=== PATIENT | male | born 1955 | race Two or more races ===

== ENCOUNTER 2018-08-12 12:29 | Emergency (ER) | END 2018-08-12 14:38 | disposition home or self-care (01) ==

== ENCOUNTER 2019-01-25 18:57 | Emergency (ER) | payer SELFPAY ==
[~2019-01-25] VITALS: Ht 162.6 cm; Wt 73.5 kg
[~2019-01-25 18:57] MED LIST: CEPH-443 PO; MINE120C TOP
[2019-01-25 19:01] VITALS: BP 129/75; PULSE 74; RESP 18; Ht 162.6 cm; Wt 73.5 kg
[2019-01-25] MEDS ORDERED: KETOROLAC 30 MG INJ IM STA (21:55)
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
[2019-01-25] MEDS ORDERED: NAPR-985 PO (22:06)
== END 2019-01-25 22:25 | disposition home or self-care (01) ==
LOC: FTE 18:57
DX: M54.9 Dorsalgia, unspecified (principal); M25.511 Pain in right shoulder
CPT/HCPCS: 73030; 96372; 99284; J1885

== ENCOUNTER 2019-02-03 14:04 | Emergency (ER) | payer MEDICAID ==
[~2019-02-03] VITALS: Ht 167.6 cm; Wt 72.8 kg
[~2019-02-03 14:04] MED LIST changes: +NAPR-985 PO
[2019-02-03 14:09] VITALS: Ht 167.6 cm; Wt 72.8 kg
[2019-02-03] MEDS ORDERED: LORAZEPAM 2 MG INJ IM STA (19:04)
[2019-02-03] MEDS ORDERED: LORA-441 PO (20:47)
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
[2019-02-03 21:42] VITALS: BP 120/82; PULSE 67; RESP 18
== END 2019-02-03 21:44 | disposition home or self-care (01) ==
LOC: E/R 14:04
DX: F43.10 Post-traumatic stress disorder, unspecified (principal)
CPT/HCPCS: 36415; 80053; 80307; 81001; 85025; 96372; J2060; Z7502

== ENCOUNTER 2019-02-10 18:08 | Emergency (ER) | payer MEDICAID ==
[~2019-02-10] VITALS: Ht 165.1 cm; Wt 73.3 kg
[~2019-02-10 18:08] MED LIST changes: +LORA-441 PO
[2019-02-10 18:13] VITALS: Ht 165.1 cm; Wt 73.3 kg
[2019-02-10] MEDS ORDERED: LORAZEPAM 1 MG TAB PO ONE (19:00)
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
--- NOTE | 2019-02-11 10:08 | EN ---
Date/Time of Note Date/Time of Note DATE: 02/11/19 TIME: 10:07 ER Progress Note Sign Out Note: Dr. Ramos relayed current data and ongoing care with me. Time: Time of this note Primary Provider: Fernando Diagnosis: Pending: Psych assessment. Patient was evaluated by psychiatry, who recommended involuntary admission. On reevaluation the patient states that he just felt anxious, and at this point does not want to be admitted to psychiatric facility, he is medically cleared and stable for discharge, resources were provided, at discharge the patient was in no distress. ZOHAIB WARE MD Feb 11, 2019 10:08
[2019-02-11 12:07] VITALS: BP 117/71; PULSE 76; RESP 18
== END 2019-02-11 12:08 | disposition home or self-care (01) ==
LOC: E/R 18:08
DX: F41.9 Anxiety disorder, unspecified (principal); F22 Delusional disorders
CPT/HCPCS: 80053; 80307; 81003; 85025; Z7502; Z7610; 99283